=== PATIENT | male | born 1995 | race Hispanic/Latino ===

== ENCOUNTER → 2018-05-24 | Outpatient (CLI) | payer OTHER ==
--- NOTE | 2018-05-24 08:34 | Diagnostic Imaging Report ---
PROCEDURE: X-RAY BARIUM SWALLOW AND UPPER GI SERIES Technique: Crystals were swallowed, and a variety of fluoroscopic images of the upper GI tract with thick and thin barium was performed. OPERATORS: Shalom Ochoa MD COMPARISON: None. INDICATIONS: GERD FINDINGS: ESOPHAGUS: Motility: Within normal limits. Mucosa: Unremarkable. Distensibility: Normal. GASTROESOPHAGEAL JUNCTION: No evidence of hiatal hernia. GASTROESOPHAGEAL REFLUX: Severe spontaneous gastroesophageal reflux to above the level of the aortic arch. STOMACH: Normally distensible and demonstrates normal contours and mucosal pattern. DUODENUM: Bulb and sweep are normal. Given that the patient had previously attributed his symptoms to GERD, no further small bowel imaging was performed. IMPRESSION: Severe spontaneous gastroesophageal reflux. Dictated by: SHALOM OCHOA M.D. on 05/24/2018 at 8:42 Electronically approved by: SHALOM OCHOA M.D. on 05/24/2018 at 8:42
== END ==
LOC: DX 06:26
PROVIDERS: ATTEND Family Medicine
DX: K21.9 Gastro-esophageal reflux disease without esophagitis (principal)
CPT/HCPCS: 74246

== ENCOUNTER → 2018-06-24 | Outpatient (CLI) | payer OTHER ==
--- NOTE | 2018-06-24 22:04 | Diagnostic Imaging Report ---
EXAM: US TESTICULAR INDICATION: Persistent testicular pain COMPARISON: None TECHNIQUE: Grayscale and color Doppler images of the testicles and scrotal contents were obtained. FINDINGS: RIGHT: The right testicle measures 4 x 2.2 x 2.8 cm. No testicular masses. Normal flow by color doppler. Epididymal head cyst/spermatocele measuring 0.5 cm, otherwise normal appearance of the epididymis. No varicocele. Trace hydrocele. LEFT: The left testicle measures 4 x 2.4 x 3 cm. No testicular masses. Normal flow by color doppler. Normal appearance of the epididymis. No varicocele. Trace hydrocele. IMPRESSION: 1. Normal sonographic appearance of the testicles. 2. Trace bilateral hydroceles. Signed by: Dr. Moira Lema M.D. on 06/24/2018 10:00 PM
== END ==
LOC: US 17:13
PROVIDERS: ATTEND Family Medicine
DX: N50.819 Testicular pain, unspecified (principal)
CPT/HCPCS: 76870